=== PATIENT | female | born 1990 | race Two or more races ===

== ENCOUNTER 2022-06-28 07:52 | Inpatient (IN) | payer OTHER, MEDICAID ==
[2022-06-26 15:18] LABS: Basophils # (auto) 0.1 10 ^3/uL (0-0.2); Eosinophils # (auto) 0.2 10 ^3/uL (0-0.8); Hematocrit 42.3 % (36.0-46.0); Mean Corpuscular Volume 78.6 fL (80.0-100.0); Red Cell Distribution Width 13.8 % (11.8-14.3); White Blood Cell 9.4 10^3/uL (4.4-10.8)
[2022-06-26 15:20] LABS: Basophils % (auto) 1.1 % (0.0-2.0); Hemoglobin 13.8 g/dL (12.2-16.2); Lymphocytes # (auto) 3.5 10 ^3/uL (0.4-5.4); Mean Corpuscular Hemoglobin 25.6 pg (28.0-32.0); Mean Corpuscular Hgb Conc. 32.6 g/dL (32.0-36.0); Monocytes # (auto) 0.7 10 ^3/uL (0-1.3); Monocytes % (auto) 7.1 % (0.0-12.0); Neutrophils % (auto) 52.8 % (37.0-80.0); Nucleated Red Blood Cells % 0.3 %; Red Blood Cells 5.39 10^6/uL (4.0-5.20)
[2022-06-26 15:41] LABS: INR 0.98 (0.9-1.15); Partial Thromboplastin Time 29.4 sec (24.6-33.4)
[2022-06-26 15:48] LABS: Albumin 3.8 g/dL (3.4-5.0); Calcium 8.6 mg/dL (8.5-10.1); Potassium 3.6 mmol/L (3.5-5.1)
[2022-06-26 15:57] LABS: BUN/Creatinine Ratio 18.4 (10.0-20.0); Bilirubin, Total 0.3 mg/dL (0.2-1.0); Total Protein 7.8 g/dL (6.4-8.2)
[2022-06-26 16:08] LABS: Urine Bacteria FEW /hpf (None Seen); Urine Blood 1+ /uL (Negative); Urine Mucus FEW (None Seen); Urine Specific Gravity 1.029 (1.001-1.035); Urine WBC 103 /hpf (0 - 5)
[~2022-06-28] VITALS: Ht 139.7 cm; Wt 72.2 kg
[2022-06-28] MEDS ORDERED: ceFAZolin 1GM/50ML 100 ML IV ONE (09:46)
[2022-06-28 17:00] VITALS: BP 111/62
[2022-06-28] MEDS: SODIUM CHLORIDE 0.9% 1,000 ML IV SCH (17:22)
[2022-06-28 20:51] LABS: Urine Bacteria NONE SEEN /hpf (None Seen); Urine Blood 1+ /uL (Negative); Urine Mucus FEW (None Seen); Urine Specific Gravity 1.024 (1.001-1.035); Urine WBC 3 /hpf (0 - 5)
[2022-06-28 22:00] VITALS: BP 100/60
[2022-06-29] MEDS: SODIUM CHLORIDE 0.9% 1,000 ML IV SCH (04:35)
[2022-06-29 05:00] VITALS: BP_SYST 102; BP_SYST 107; BP_DIAS 46; BP_DIAS 60
[2022-06-29 09:00] VITALS: BP 101/61
[2022-06-29] MEDS: PANTOPRAZOLE 40 MG/10 ML VIAL INJ IV SCH (10:00)
[2022-06-29] MEDS ORDERED: BUPIVACAINE 0.25% INJ 50ML VIAL ONE (10:39)
[2022-06-29] MEDS ORDERED: ceFAZolin 1GM/50ML 100 ML IV ONE (10:39)
[2022-06-29] MEDS ORDERED: LIDOCAINE W/ EPINEPHRINE 1% 20ML VIAL ONE (10:39)
[2022-06-29] MEDS ORDERED: fentaNYL CITRATE 100 MCG/2 ML VL ONE (10:45)
[2022-06-29] MEDS ORDERED: MIDAZOLAM HCL 2MG/2ML 2ml VIAL (1mg/ml) ONE (10:45)
[2022-06-29] MEDS ORDERED: MEPERIDINE HCL (50 MG/ML) 1 ML VIAL ONE (10:46)
[2022-06-29] MEDS ORDERED: DexAMETHasone SOD PHOS 10MG/1ML VIAL INJ ONE (10:46)
[2022-06-29] MEDS ORDERED: NEOSTIGMINE 1 MG/ML INJ (10mg/10ML VIAL) ONE (10:46)
[2022-06-29] MEDS ORDERED: ROCURONIUM 10MG/ML 10ML VIAL IV ONE (10:46)
[2022-06-29] MEDS ORDERED: PROPOFOL 10 MG/ML 20 ML IV ONE (10:46)
[2022-06-29] MEDS ORDERED: SODIUM CHLORIDE LOCK 10 ML ONE (10:46)
[2022-06-29] MEDS ORDERED: GLYCOPYRROLATE 0.2 MG/ML 1ML VIAL ONE (10:46)
[2022-06-29] MEDS ORDERED: ONDANSETRON HCL 4 MG/2 ML VIAL IV PRN (12:00)
[2022-06-29] MEDS ORDERED: HYDROmorphone HCL 2 MG/ML VL/or syr IV PRN ×3 (12:00→12:15)
[2022-06-29] MEDS ORDERED: MORPHINE SULFATE INJ 2 MG/ml SYRG IV PRN (12:15)
[2022-06-29] MEDS ORDERED: METOCLOPRAMIDE HCL 5MG/ml INJ 2ml VIAL IV PRN (12:15)
[2022-06-29 16:39] VITALS: BP 111/62
[2022-06-29 22:00] VITALS: BP 144/71
[2022-06-30] MEDS: SODIUM CHLORIDE 0.9% 1,000 ML IV SCH ×2 (00:26→10:00)
[2022-06-30 05:00] VITALS: BP 97/62
[2022-06-30 07:19] LABS: Basophils # (auto) 0.1 10 ^3/uL (0-0.2); Eosinophils # (auto) 0 10 ^3/uL (0-0.8); Eosinophils % (auto) 0.1 % (0.0-7.0); Lymphocytes # (auto) 2.7 10 ^3/uL (0.4-5.4); Mean Corpuscular Volume 77.7 fL (80.0-100.0); Neutrophils # (auto) 10.2 10 ^3/uL (1.6-8.6); Nucleated Red Blood Cells % 0.2 %; Red Cell Distribution Width 13.6 % (11.8-14.3)
[2022-06-30 07:21] LABS: Basophils % (auto) 0.5 % (0.0-2.0); Hematocrit 36.6 % (36.0-46.0); Lymphocytes % (auto) 19.5 % (10.0-50.0); Mean Corpuscular Hemoglobin 25.6 pg (28.0-32.0); Mean Corpuscular Hgb Conc. 32.9 g/dL (32.0-36.0); Monocytes % (auto) 7.1 % (0.0-12.0); Neutrophils % (auto) 72.8 % (37.0-80.0)
[2022-06-30 08:00] LABS: Albumin 3.2 g/dL (3.4-5.0); BUN/Creatinine Ratio 15.3 (10.0-20.0); Bilirubin, Total 1.1 mg/dL (0.2-1.0); Calcium 8.5 mg/dL (8.5-10.1); Total Protein 6.9 g/dL (6.4-8.2)
[2022-06-30 09:00] VITALS: BP 106/60
[2022-06-30] MEDS: PANTOPRAZOLE 40 MG/10 ML VIAL INJ IV SCH (10:00)
[2022-06-30] MEDS ORDERED: DOCU-94 PO (12:22)
[2022-06-30] MEDS ORDERED: CEPH-510 PO (12:22)
[2022-06-30] MEDS ORDERED: TRAM50TA2 PO (12:22)
[2022-06-30 13:34] VITALS: BP 90/51
== END 2022-06-30 16:45 | disposition home or self-care (01) | DRG 419 ==
LOC: SUR 07:52 → WEST WING 16:10
PROVIDERS: ADMIT Internal Medicine; ATTEND Internal Medicine
PROC: 0FT44ZZ Resection of Gallbladder, Percutaneous Endoscopic Approach (ICD-10-PCS; principal; 2022-06-29 10:54)
DX: K82.8 Other specified diseases of gallbladder (principal); E66.9 Obesity, unspecified; Z68.37 Body mass index [BMI] 37.0-37.9, adult
CPT/HCPCS: 36415; 76705; 78226; 80053; 81001; 84702; 85025; 85610; 85730; 86850; 86900; 86901; C9113; G0378; J0690; J1100; J2250; J2704; J3490

== ENCOUNTER 2022-07-25 16:56 | Emergency (ER) | payer OTHER, MEDICAID ==
[~2022-07-25] VITALS: Ht 162.6 cm; Wt 63.6 kg
[~2022-07-25 16:56] MED LIST: CEPH-510 PO; DOCU-94 PO; TRAM50TA2 PO
[2022-07-25 17:03] VITALS: BP 121/82
== END 2022-07-25 20:51 | disposition left against medical advice (07) ==
LOC: EDBD 16:56 → ER 16:56
DX: K82.9 Disease of gallbladder, unspecified (principal); Z53.21 Procedure and treatment not carried out due to patient leaving prior to being seen by health care provider

== ENCOUNTER → 2022-07-31 | Outpatient (CLI) | payer OTHER, MEDICAID ==
[2022-07-31 15:48] LABS: Urine Bacteria NONE SEEN /hpf (None Seen); Urine Blood TRACE /uL (Negative); Urine Mucus FEW (None Seen); Urine Specific Gravity 1.011 (1.001-1.035); Urine WBC 8 /hpf (0 - 5)
== END | disposition home or self-care (01) ==
LOC: LAB 15:34
PROVIDERS: ATTEND Nurse Practitioner Family
DX: N30.90 Cystitis, unspecified without hematuria (principal); K59.01 Slow transit constipation
CPT/HCPCS: 81001; 87086

== ENCOUNTER 2022-09-01 17:32 | Emergency (ER) | payer OTHER, MEDICAID ==
[~2022-09-01] VITALS: Ht 157.5 cm; Wt 54.5 kg
[2022-09-01 18:41] LABS: Basophils # (auto) 0.1 10 ^3/uL (0-0.2); Basophils % (auto) 0.9 % (0.0-2.0); Eosinophils # (auto) 0.2 10 ^3/uL (0-0.8); Hematocrit 39.4 % (36.0-46.0); Hemoglobin 12.9 g/dL (12.2-16.2); Lymphocytes # (auto) 2.9 10 ^3/uL (0.4-5.4); Lymphocytes % (auto) 32.4 % (10.0-50.0); Mean Corpuscular Hemoglobin 25.9 pg (28.0-32.0); Mean Corpuscular Hgb Conc. 32.8 g/dL (32.0-36.0); Monocytes # (auto) 0.7 10 ^3/uL (0-1.3); Monocytes % (auto) 8.3 % (0.0-12.0); Neutrophils % (auto) 56.4 % (37.0-80.0); Nucleated Red Blood Cells % 0.1 %; Red Blood Cells 4.99 10^6/uL (4.0-5.20); Red Cell Distribution Width 14.2 % (11.8-14.3); White Blood Cell 8.9 10^3/uL (4.4-10.8)
[2022-09-01 18:52] LABS: Albumin 3.7 g/dL (3.4-5.0); Calcium 8.8 mg/dL (8.5-10.1); Potassium 3.5 mmol/L (3.5-5.1)
[2022-09-01 18:57] LABS: BUN/Creatinine Ratio 21.7 (10.0-20.0); Bilirubin, Total 0.3 mg/dL (0.2-1.0); Total Protein 7.6 g/dL (6.4-8.2)
[2022-09-01] MEDS ORDERED: ONDANSETRON ODT 4 MG TAB PO ONE (22:45)
[2022-09-01] MEDS ORDERED: MECLIZINE HCL 25 MG TAB PO ONE (22:45)
[2022-09-01] MEDS ORDERED: SODIUM CHLORIDE 0.9% 1,000 ML IV ONE (22:45)
[2022-09-01] MEDS ORDERED: IBUPROFEN 400 MG TAB PO ONE (22:45)
[2022-09-01] MEDS ORDERED: ZOFR4T PO (23:05)
[2022-09-01] MEDS ORDERED: MECL25CH85 PO (23:05)
[2022-09-01] MEDS ORDERED: IBUP-1453 PO (23:05)
[2022-09-02] VITALS: BP 103/66
== END 2022-09-02 16:19 | disposition home or self-care (01) ==
LOC: EDUNIT# 17:32 → EDBD 17:32 → ER 17:32
DX: R07.89 Other chest pain (principal); R42 Dizziness and giddiness; M65.20 Calcific tendinitis, unspecified site; Z90.49 Acquired absence of other specified parts of digestive tract
CPT/HCPCS: 36415; 70450; 71045; 80053; 84484; 85025; 93005; 96360; 96361; 99285; J7030; J8597; Q0162

== ENCOUNTER → 2022-10-10 | Outpatient (CLI) | payer OTHER, MEDICAID ==
[~2022-10-10] MED LIST changes: +IBUP-1453 PO; +MECL25CH85 PO; +ZOFR4T PO
[2022-10-10 11:39] LABS: % Iron Saturation 26.5 % (15-50)
== END | disposition home or self-care (01) ==
LOC: LAB 10:01
PROVIDERS: ATTEND Family Medicine
DX: R07.89 Other chest pain (principal); R53.83 Other fatigue; Z68.24 Body mass index [BMI] 24.0-24.9, adult
CPT/HCPCS: 83540; 83550

== ENCOUNTER 2023-10-13 09:54 | Emergency (ER) | payer OTHER, MEDICAID ==
[~2023-10-13] VITALS: Ht 157.5 cm; Wt 54.0 kg
[2023-10-13] MEDS ORDERED: NAPR-746 PO (11:02)
[2023-10-13 11:03] VITALS: BP 134/82; PULSE 82; RESP 16; TEMP 98.6; O2SAT 97
== END 2023-10-13 11:13 | disposition home or self-care (01) ==
LOC: EDBD 09:54 → ER 09:54 → EDUNIT# 09:54 → ER 11:07
DX: M23.91 Unspecified internal derangement of right knee (principal); Z79.899 Other long term (current) drug therapy; Z79.1 Long term (current) use of non-steroidal anti-inflammatories (NSAID)
CPT/HCPCS: 73562

== ENCOUNTER → 2023-11-22 | Outpatient (CLI) | payer OTHER, MEDICAID ==
[~2023-11-22] MED LIST changes: +NAPR-746 PO
== END | disposition home or self-care (01) ==
LOC: LAB 12:37
PROVIDERS: ATTEND Family Medicine
DX: N39.0 Urinary tract infection, site not specified (principal)
CPT/HCPCS: 87086